=== PATIENT | male | born 1950 | race Caucasian/White ===

== ENCOUNTER 2024-05-17 12:48 | Emergency (ER) | payer MEDICARE, BC | END 2024-05-17 13:34 | disposition left against medical advice (07) | LOC: JP.ED 12:48 | DX: Z53.21 Procedure and treatment not carried out due to patient leaving prior to being seen by health care provider (principal) ==

== ENCOUNTER 2024-05-18 07:44 | Emergency (ER) | payer MEDICARE, BC ==
[2024-05-18 08:25] LABS: BASOPHILS PERCENT AUTO 0.4 % (0.1-1.3); EOSINOPHILS ABSOLUTE AUTO 0.32 K/uL (0.00-0.40); EOSINOPHILS PERCENT AUTO 7.2 % (0.0-5.4); HEMATOCRIT 43.4 % (38.4-49.7); HEMOGLOBIN 14.6 g/dL (12.9-16.9); IMMATURE GRAN PERCENT AUTO 0.2 % (0.0-0.7); LYMPHOCYTES ABSOLUTE AUTO 0.77 K/uL (0.8-3.3); LYMPHOCYTES PERCENT AUTO 17.3 % (11.4-47.7); MEAN CORPUSCULAR HEMOGLOBIN 31.9 pg (31.6-35.5); MEAN CORPUSCULAR HGB CONC 33.6 g/dL (31.6-35.5); MONOCYTES ABSOLUTE AUTO 0.48 K/uL (0.20-0.90); MONOCYTES PERCENT AUTO 10.8 % (3.3-12.6); NEUTROPHILS ABSOLUTE AUTO 2.86 K/uL (1.0-7.6); NEUTROPHILS PERCENT AUTO 64.1 % (40.0-78.1); PLATELET COUNT,PLT 53 K/uL (130-375); RED BLOOD CELL COUNT 4.57 M/uL (4.14-5.76); WHITE BLOOD CELL COUNT,WBC 4.5 K/uL (3.2-11.0)
[2024-05-18 08:34] LABS: BASOPHILS ABSOLUTE AUTO 0.02 K/uL (0.00-0.10); IMMATURE GRAN ABSOLUTE AUTO 0.01 K/uL (0.00-0.23)
[2024-05-18 08:44] LABS: A/G RATIO 1.4 (1.2-2.2); ALANINE AMINOTRANSFERASE,ALT 35 U/L (12-78); ALKALINE PHOSPHATASE 74 U/L (46-116); ASPARTATE AMNIOTRANSFERASE,AST 34 U/L (15-37); BILIRUBIN TOTAL 1.3 mg/dL (0.2-1.0); BLOOD UREA NITROGEN,BUN 13 mg/dL (7-18); CARBON DIOXIDE,CO2 27 mmol/L (21-32); CHLORIDE,CL 103 mmol/L (100-108); CREATININE 1.1 mg/dL (0.8-1.3); EST CRCL DRUG DOSING (CG) 62.75 mL/min; ESTIMATED GFR 70 mL/min (>60); GLUCOSE RANDOM 131 mg/dL (74-106); POTASSIUM,K 4.2 mmol/L (3.6-5.2); PROTEIN TOTAL,TP 6.8 g/dL (6.4-8.2); SODIUM,NA 139 mmol/L (140-148)
[2024-05-18 08:46] LABS: ANION GAP 13.2 mmol/L (5.0-14.0); C-REACTIVE PROTEIN < 0.50 mg/dL (<0.50)
[2024-05-18] MEDS ORDERED: Apixaban 5 MG Tab PO ONE (09:11)
[2024-05-18] MEDS: Apixaban 5 MG Tab PO ONE (09:27)
== END 2024-05-18 09:32 | disposition home or self-care (01) ==
LOC: JP.ED 07:44
DX: I80.11 Phlebitis and thrombophlebitis of right femoral vein (principal); J44.9 Chronic obstructive pulmonary disease, unspecified; Z79.82 Long term (current) use of aspirin; Z79.899 Other long term (current) drug therapy
CPT/HCPCS: 36415; 80053; 85025; 85379; 86140; 93971; 99284; A9270

== ENCOUNTER 2024-06-22 09:32 | Emergency (ER) | payer MEDICARE, BC ==
[2024-06-22 11:00] LABS: INFLUENZA A NAA NEGATIVE (NEGATIVE); INFLUENZA B NAA NEGATIVE (NEGATIVE); RESPIRATORY SYNCYTIAL VIR NAA NEGATIVE (NEGATIVE)
[2024-06-22 11:03] LABS: CORONAVIRUS COVID-19 NAA POSITIVE (NEGATIVE)
== END 2024-06-22 12:11 | disposition home or self-care (01) ==
LOC: JP.ED 09:32
DX: J06.9 Acute upper respiratory infection, unspecified (principal); J44.9 Chronic obstructive pulmonary disease, unspecified; K21.9 Gastro-esophageal reflux disease without esophagitis; Z79.82 Long term (current) use of aspirin; Z79.01 Long term (current) use of anticoagulants; Z79.899 Other long term (current) drug therapy; Z79.51 Long term (current) use of inhaled steroids
CPT/HCPCS: 0241U; 71046; 99285; 99282

== ENCOUNTER 2024-07-04 18:45 | Emergency (ER) | payer MEDICARE, BC ==
[2024-07-04] MEDS: Albuterol/Ipratropium 3.0-0.5 MG/3 ML Neb Soln NEB ONE (19:21)
[2024-07-04 19:29] LABS: BASOPHILS ABSOLUTE AUTO 0.01 K/uL (0.00-0.10); BASOPHILS PERCENT AUTO 0.1 % (0.1-1.3); EOSINOPHILS ABSOLUTE AUTO 0.05 K/uL (0.00-0.40); EOSINOPHILS PERCENT AUTO 0.7 % (0.0-5.4); HEMATOCRIT 33.3 % (38.4-49.7); HEMOGLOBIN 11.7 g/dL (12.9-16.9); IMMATURE GRAN ABSOLUTE AUTO 0.03 K/uL (0.00-0.23); IMMATURE GRAN PERCENT AUTO 0.4 % (0.0-0.7); LYMPHOCYTES ABSOLUTE AUTO 0.23 K/uL (0.8-3.3); LYMPHOCYTES PERCENT AUTO 3.3 % (11.4-47.7); MEAN CORPUSCULAR HEMOGLOBIN 32.2 pg (31.6-35.5); MEAN CORPUSCULAR HGB CONC 35.1 g/dL (31.6-35.5); MEAN CORPUSCULAR VOLUME 91.7 fL (81.4-99.0); MONOCYTES PERCENT AUTO 11.4 % (3.3-12.6); NEUTROPHILS ABSOLUTE AUTO 5.91 K/uL (1.0-7.6); NEUTROPHILS PERCENT AUTO 84.1 % (40.0-78.1); PLATELET COUNT,PLT 75 K/uL (130-375); RED BLOOD CELL COUNT 3.63 M/uL (4.14-5.76)
[2024-07-04 19:59] LABS: A/G RATIO 0.8 (1.2-2.2); ALANINE AMINOTRANSFERASE,ALT 69 U/L (12-78); ALBUMIN 2.8 g/dL (3.4-5.0); ALKALINE PHOSPHATASE 121 U/L (46-116); ASPARTATE AMNIOTRANSFERASE,AST 98 U/L (15-37); BILIRUBIN TOTAL 1.7 mg/dL (0.2-1.0); BLOOD UREA NITROGEN,BUN 28 mg/dL (7-18); CALCIUM 8.5 mg/dL (8.5-10.1); CARBON DIOXIDE,CO2 27 mmol/L (21-32); CHLORIDE,CL 96 mmol/L (100-108); CREATININE 1.5 mg/dL (0.8-1.3); EST CRCL DRUG DOSING (CG) 46.02 mL/min; ESTIMATED GFR 49 mL/min (>60); GLUCOSE RANDOM 123 mg/dL (74-106); POTASSIUM,K 4.7 mmol/L (3.6-5.2); PROTEIN TOTAL,TP 6.3 g/dL (6.4-8.2); SODIUM,NA 130 mmol/L (140-148)
[2024-07-04 20:01] LABS: ANION GAP 11.7 mmol/L (5.0-14.0)
[2024-07-04] MEDS: Doxycycline 100 MG Cap PO ONE (20:58)
== END 2024-07-04 21:14 | disposition home or self-care (01) ==
LOC: JP.ED 18:45
DX: J44.1 Chronic obstructive pulmonary disease with (acute) exacerbation (principal); K21.9 Gastro-esophageal reflux disease without esophagitis; Z87.891 Personal history of nicotine dependence; Z79.899 Other long term (current) drug therapy; Z79.01 Long term (current) use of anticoagulants; Z79.82 Long term (current) use of aspirin
CPT/HCPCS: 36415; 71046; 80053; 83605; 84145; 85025; 94640; 99285; A9270; J7620

== ENCOUNTER 2024-07-16 10:58 | Observation (INO) | payer MEDICARE, BC ==
[2024-07-16] MEDS ORDERED: Sodium Chloride 0.9% 10 ML Syringe FLUSH PRN ×2 (11:34→16:24)
[2024-07-16] MEDS: Sodium Chloride 0.9% 1,000 ML IV ONE ×2 (11:45→14:23)
[2024-07-16 11:56] LABS: BASOPHILS ABSOLUTE AUTO 0.01 K/uL (0.00-0.10); BASOPHILS PERCENT AUTO 0.1 % (0.1-1.3); EOSINOPHILS ABSOLUTE AUTO 0.12 K/uL (0.00-0.40); EOSINOPHILS PERCENT AUTO 1.2 % (0.0-5.4); HEMATOCRIT 35.3 % (38.4-49.7); HEMOGLOBIN 12.1 g/dL (12.9-16.9); IMMATURE GRAN ABSOLUTE AUTO 0.12 K/uL (0.00-0.23); IMMATURE GRAN PERCENT AUTO 1.2 % (0.0-0.7); LYMPHOCYTES ABSOLUTE AUTO 0.84 K/uL (0.8-3.3); LYMPHOCYTES PERCENT AUTO 8.6 % (11.4-47.7); MEAN CORPUSCULAR HEMOGLOBIN 32.1 pg (31.6-35.5); MEAN CORPUSCULAR HGB CONC 34.3 g/dL (31.6-35.5); MEAN CORPUSCULAR VOLUME 93.6 fL (81.4-99.0); MONOCYTES ABSOLUTE AUTO 0.97 K/uL (0.20-0.90); MONOCYTES PERCENT AUTO 9.9 % (3.3-12.6); NEUTROPHILS ABSOLUTE AUTO 7.74 K/uL (1.0-7.6); PLATELET COUNT,PLT 100 K/uL (130-375); RED BLOOD CELL COUNT 3.77 M/uL (4.14-5.76); WHITE BLOOD CELL COUNT,WBC 9.8 K/uL (3.2-11.0)
[2024-07-16 12:12] LABS: ANION GAP 9.6 mmol/L (5.0-14.0); BLOOD UREA NITROGEN,BUN 16 mg/dL (7-18); C-REACTIVE PROTEIN 6.93 mg/dL (<0.50); CALCIUM 8.9 mg/dL (8.5-10.1); CARBON DIOXIDE,CO2 30 mmol/L (21-32); CHLORIDE,CL 100 mmol/L (100-108); CREATININE 1.3 mg/dL (0.8-1.3); ESTIMATED GFR 58 mL/min (>60); GLUCOSE RANDOM 98 mg/dL (74-106); POTASSIUM,K 4.6 mmol/L (3.6-5.2); SODIUM,NA 135 mmol/L (140-148)
[2024-07-16] MEDS: cefTRIAXone 2 GM in Sodium Chloride 0.9% 50 ML IV ONE (12:44)
[2024-07-16 13:39] LABS: APPEARANCE,URINE SLIGHTLY CLOUDY (CLEAR); BILIRUBIN,URINE NEGATIVE (NEGATIVE); COLOR,URINE YELLOW (YELLOW); GLUCOSE,URINE NEGATIVE (NEGATIVE); KETONES,URINE NEGATIVE (NEGATIVE); LEUKOCYTE ESTERASE,URINE NEGATIVE (NEGATIVE); NITRITE,URINE NEGATIVE (NEGATIVE); OCCULT BLOOD,URINE NEGATIVE (NEGATIVE); PROTEIN,URINE NEGATIVE (NEGATIVE); UROBILINOGEN,URINE 0.2 EU/dL (0.2-1.0)
[2024-07-16 13:45] LABS: AMORPHOUS SEDIMENT,URINE RARE; BACTERIA,URINE RARE; EPITHELIAL CELLS,URINE NOT SEEN; MUCUS,URINE NOT SEEN; RBC,URINE NOT SEEN (0-5); WBC,URINE NOT SEEN (0-5)
[2024-07-16] MEDS: methylPREDNISolone Sodium Succinate 125 MG/2 ML SDV IVPUSH ONE (14:25)
[2024-07-16] MEDS: Albuterol/Ipratropium 3.0-0.5 MG/3 ML Neb Soln NEB ONE (15:26)
[2024-07-16] MEDS ORDERED: Polyethylene Glycol 3350 Powder 17 GM Packet PO PRN (16:24)
[2024-07-16] MEDS ORDERED: Ondansetron 4 MG/2 ML SDV IV PRN (16:24)
[2024-07-16] MEDS ORDERED: oxyCODONE 5 MG Tab PO PRN (16:24)
[2024-07-16] MEDS ORDERED: Acetaminophen 325 MG Tab PO PRN (16:24)
[2024-07-16] MEDS: Sodium Chloride 0.9% 1,000 ML IV SCH (17:08)
[2024-07-16] MEDS: Formoterol/Mometasone 200-5 MCG 8.8 GM Inhaler INH SCH (21:09)
[2024-07-16] MEDS: Apixaban 5 MG Tab PO SCH (21:10)
[2024-07-16] MEDS: atorvaSTATin 20 MG Tab PO SCH (21:10)
[2024-07-16] MEDS: Albuterol/Ipratropium 3.0-0.5 MG/3 ML Neb Soln INH PRN (23:18)
[2024-07-17] MEDS: Tiotropium Bromide 4 GM Inhalation Spray (2.5mcg/1 dose; 10 doses) INH SCH (07:16)
[2024-07-17] MEDS: Pantoprazole 40 MG Tab.CR PO SCH (07:58)
[2024-07-17] MEDS: Aspirin 81 MG Tab.EC PO SCH (08:00)
[2024-07-17] MEDS: Finasteride 5 MG Tab PO SCH (08:00)
== END 2024-07-17 13:30 | disposition home or self-care (01) ==
LOC: JP.ED 10:58 → JP.ICU 15:18
PROVIDERS: ADMIT Hospitalist; ATTEND Hospitalist
DX: J44.1 Chronic obstructive pulmonary disease with (acute) exacerbation (principal); I95.9 Hypotension, unspecified; K21.9 Gastro-esophageal reflux disease without esophagitis; Z79.82 Long term (current) use of aspirin; Z79.899 Other long term (current) drug therapy
CPT/HCPCS: 36415; 71250; 72100; 80048; 81001; 83605; 84145; 85025; 86140; 87040; 93306; 94640; 96361; 96365; 96375; 97110; 97161; 99222; 99238; 99285; A9270; G0378; J0696; J2919; J3490; J7030; J7620